=== PATIENT | male | born 1975 | race Caucasian/White ===

== ENCOUNTER 2018-11-06 05:51 | Day surgery (SDC) | payer OTHER ==
--- NOTE | 2018-11-05 08:22 | HP ---
Amended report to enter cosigning physician. HISTORY AND PHYSICAL: DATE OF SURGERY: 11/06/18 DATE OF OFFICE VISIT: 10/31/18 SURGEON: Lizzie Gallardo MD* (dictated by CHUCHO Lambert). PROCEDURE: Right knee arthroscopy with partial meniscectomy, possible chondroplasty, possible synovectomy, possible loose body excision, and possible plica excision. CHIEF COMPLAINT: Right knee pain. HISTORY OF PRESENT ILLNESS: Mr. Araujo is a 42-year-old gentleman with complaints of right knee pain and MRI confirms a meniscus tear. He has elected to proceed with surgery. PAST MEDICAL HISTORY: 1. GERD. 2. Psoriasis. 3. High cholesterol. 4. Rheumatoid arthritis. PAST SURGICAL HISTORY: 1. Right knee ACL reconstruction. 2. Appendectomy. CURRENT MEDICATIONS: 1. Nexium 40 mg a day. 2. Atorvastatin 10 mg half a tab daily. ALLERGIES: STATIN. FAMILY HISTORY: Coronary artery disease and strokes. SOCIAL HISTORY: This is a 42-year-old gentleman, lives with his . He does not smoke or use drugs, drinks about 1 alcoholic beverage a day. REVIEW OF SYSTEMS: A complete 14-point review of systems was reviewed with the patient. Positive for GERD. He denies a history of DVT, PE, hepatitis, HIV, or anesthesia problems. PHYSICAL EXAMINATION GENERAL: He is well developed, well nourished, in no acute distress. VITAL SIGNS: He stands 5 feet 10 inches tall, weighs 195 pounds. His blood pressure is 126/78, his heart rate is 100. HEENT: Normocephalic, atraumatic. NECK: Supple, no palpable lymph nodes. PULMONARY: The lungs are clear to auscultation bilaterally. CARDIAC: Regular rate and rhythm. Strong S1, S2. ABDOMEN: Soft, nontender, nondistended. NEUROLOGICAL: He is alert and oriented x3. MUSCULOSKELETAL: Right lower extremity, the skin is intact. There are no open wounds or abrasions. There is a moderate joint effusion. He has a positive Apley's, positive Adelso's. Negative Carolina's. Range of motion is 5 to 125 degrees of flexion. He is able to dorsiflex and plantar flex. Has a 2+ dorsalis pedis pulse and intact sensation. ASSESSMENT AND PLAN: Mr. Araujo is a 42-year-old gentleman with complaints of right knee pain. An MRI confirms a meniscus tear. He has elected to proceed with a right knee arthroscopy with partial meniscectomy, possible chondroplasty, possible synovectomy, possible loose body excision, possible plica excision. Surgery is scheduled for 11/06/[address] Gallardo discussed the risks and benefits of the surgery at today's visit, and all of his questions were answered. He will follow up with Dr. Gallardo 2 weeks after the surgery. CHUCHO LAMBERT [id number]/[facility] #: [id number] KARIME
[~2018-11-06 05:51] MED LIST: Buffered Lidocaine 1% SYRIN* 1 ML/SYRINGE INTRADERM ONE
[2018-11-06] MEDS ORDERED: Lactated Ringers 1000 ML Bag* 1,000 ML IV SCH (06:00)
[2018-11-06] MEDS ORDERED: Famotidine IV* 10 MG/ML 2 ML (20 mg) IV ONE (06:00)
[2018-11-06] MEDS ORDERED: ceFAZolin 2 GM in NS PREMIX(*) 2 GM/100 ML BAG IVPB ONE (06:09)
[2018-11-06] MEDS ORDERED: Buffered Lidocaine 1% SYRIN* 1 ML/SYRINGE INTRADERM ONE (06:09)
[2018-11-06] MEDS ORDERED: Famotidine IV* 10 MG/ML 2 ML (20 mg) ONE (06:09)
[2018-11-06] MEDS ORDERED: methylPREDNISolone ACETATE 80* 80 MG/ML 1 ML VIAL ONE (06:50)
[2018-11-06] MEDS ORDERED: EPINEPHRINE 1 MG/ML 1 ML VIAL ONE (06:50)
[2018-11-06] MEDS ORDERED: Bupivacaine 0.5%* 50 ML VIAL ONE (06:50)
[2018-11-06] MEDS ORDERED: Ondansetron INJ* 2 MG/ML VIAL ONE (07:00)
[2018-11-06] MEDS ORDERED: Dexamethasone IV* 4 MG/ML 1 ML (4 MG) ONE (07:00)
[2018-11-06] MEDS ORDERED: Lidocaine 2% PF * 5 ML VIAL ONE (07:00)
[2018-11-06] MEDS ORDERED: Propofol* 10 MG/ML 20 ML BTL ONE (07:00)
[2018-11-06] MEDS ORDERED: fentaNYL* 50 MCG/ML 2 ML VIAL (100 MCG VIAL) ONE ×3 (07:00→08:42)
[2018-11-06] MEDS ORDERED: Midazolam* 1 MG/ML 5 ML VIAL (5 MG) ONE (07:00)
[2018-11-06] MEDS ORDERED: Ketorolac INJ* 30 MG/ML 1 ML VIAL ONE (07:29)
[2018-11-06] MEDS ORDERED: Scopolamine 1.5 mg* PATCH ONE (07:59)
[2018-11-06] MEDS ORDERED: Metoprolol Tartrate IV* 1 MG/ML 5 ML VIAL ONE (08:08)
[2018-11-06] MEDS ORDERED: Naloxone* 0.4 MG/ML 1 ML VIAL IV PRN (08:15)
[2018-11-06] MEDS ORDERED: DiMENhydriNATE IV* 50 MG/ML VIAL IV PUSH PRN (08:15)
[2018-11-06] MEDS ORDERED: Ondansetron INJ* 2 MG/ML VIAL IV PRN (08:15)
[2018-11-06] MEDS ORDERED: HYDROcodone/ACETAMIN 5-325 MG* 1 TAB PO PRN (08:15)
[2018-11-06] MEDS: fentaNYL* 50 MCG/ML 2 ML VIAL (100 MCG VIAL) IV PRN ×2 (08:44→08:59)
[2018-11-06] MEDS ORDERED: HYDROcodone/ACETAMIN 5-325 MG* 1 TAB ONE (08:48)
[2018-11-06 11:01] VITALS: BP 136/88
--- NOTE | 2018-11-07 05:19 | OP ---
DATE OF OPERATION: 11/06/18 - [facility] DATE OF : 75 ATTENDING SURGEON: Lizzie Gallardo MD [employer] BUSINESS ANALYST: CHUCHO Adams. Mr. Yarbrough did help throughout the procedure with preparation of the leg, wound retraction, manipulation of the knee, and wound closure. ANESTHESIOLOGIST: Dr. Farias. ANESTHESIA: General. PRE-OP DIAGNOSES: Right knee [id number] osteoarthritis, medial meniscal tear, anterior loose body. POST-OP DIAGNOSES: Right knee [id number] osteoarthritis, anterior synovitis with small anterior loose body, medial meniscal tear, lateral meniscal tear. OPERATIVE PROCEDURE: Right knee arthroscopy with partial medial meniscectomy, partial lateral meniscectomy, anterior synovectomy. ESTIMATED BLOOD LOSS: Less than 25 cc. COMPLICATIONS: None. SPECIMEN: None. BRIEF HISTORY/INDICATION: Mr. Araujo is a 42-year-old gentleman who has had 1 year of intermittent pain and swelling in the right knee. Over the last month , he developed severe pain with inability to work or walk without crutches. An MRI showed medial meniscal tear as well as an intra-articular loose body along the anterior joint line. The patient failed conservative treatment. He wished to proceed with right knee arthroscopy for excision of the loose body, partial meniscectomy, possible chondroplasty, possible synovectomy. Informed consent was obtained from the patient. He understood the risks of surgery included but were not limited to bleeding, infection, damage to nearby structures, continued pain, need for further surgery, retear of the meniscus, continued progression of arthritis, stroke, heart attack, blood clot, , and the anesthesia complications. He elected to proceed. INTRAOPERATIVE FINDINGS: Intraoperatively, the patient was noted to have a complex tear of the posterior medial meniscus in the red-white zone. He had a radial type tear of the posterior lateral portion of the lateral meniscus, he had a small calcified body along the anterior joint line in the fat pad. He had a significant amount of inflamed synovium anteriorly along the joint line. He was noted to have grade 2 and 3 Outerbridge cartilage changes in the medial and patellofemoral compartments. There was minimal exposed subchondral bone. The patient was noted to have some laxity of the ACL. DESCRIPTION OF PROCEDURE: Mr. Araujo was identified in the preanesthesia unit. His right lower extremity was marked as the correct operative side. Informed consent was signed and placed in the chart. The patient was taken to the operating room and placed under general anesthesia. Right lower extremity was prepped and draped in the usual sterile fashion. Preop time-out was made to correctly identify the patient, side, and site. Appropriate perioperative antibiotics were given within 1 hour of incision. An anterolateral 0.5 cm portal incision was made with a 10 blade and carried down through the capsule. Trocar was introduced. As soon as the light and water sources were turned on, there was immediate visualization of the suprapatellar pouch. A tour of the knee joint was performed. No abnormality was seen in the suprapatellar pouch. Patellofemoral compartment showed some grade 2 and 3 Outerbridge cartilage changes, but no large areas of exposed subchondral bone. There was obvious red inflamed synovium along the entire anterior joint line. Medial gutter showed no loose body. Medial compartment showed some grade 2 to 3 Outerbridge cartilage changes along the medial femoral condyle. There was a visible displaced linear/complex tear of the posterior medial meniscus visible. The ACL had some frayed soft tissue anteriorly. The knee was placed in the glaezh-gj-tzgl position. There was a radial tear along the posterior portion of the lateral meniscus. Minimal degenerative changes in the compartment. Lateral gutter showed no loose body. Under direct visualization, a medial portal incision was made. A second tour of the knee joint was performed. Additional findings were, upon probing the anterior joint line, there was a calcified loose body that had been visualized on MRI. Shaver and radiofrequency ablation wand were used to perform the anterior synovectomy along the joint line. This improved visualization greatly. The calcified body was carefully removed using the shaver and radiofrequency ablation wand. Diameter was approximately 5 mm. Straight biter and shaver were used to perform partial medial meniscectomy along the posterior one third of the medial meniscus in the red-white zone. Further probing of the meniscus showed no additional tears or displaced fragments. Radiofrequency ablation wand was used to further smooth the edge of the meniscus. Next, the knee was placed in a owqtzy-tt-mbeo position. The radial tear along the posterior portion of the lateral meniscus in the red-white zone was carefully removed using a shaver and radiofrequency ablation wand. Further probing of the lateral meniscus showed no additional tears. Attention was turned to evaluation of the ACL. Radiofrequency ablation wand was used to remove any inflamed tissue or frayed soft tissue along the anterior tendon. Probing of the tendon showed approximately 50% had significant laxity and 50% showed good integrity and stability of the tendon. The knee was copiously irrigated with sterile saline. All instruments were removed. Incisions were closed with 3-0 nylon future. Sterile Xeroform, 4x4's , and Webril were used to cover the incision. The Leopoldo wrap and cold pack were placed over this. The patient's anesthesia was reversed without difficulty. He was taken to the PACU in stable condition. Intended weightbearing will be weightbearing as tolerated. Intended DVT prophylaxis will be aspirin. He will follow up in 2 weeks' time for suture removal. [id number]/[facility] #: [id number] KARIME
[2018-11-09] MEDS ORDERED: Scopolamine PATCH Remove* 1 NOTE MISC PATCH OFF ONE (08:16)
== END 2018-11-06 11:05 | disposition home or self-care (01) ==
LOC: OR 05:51
PROVIDERS: ATTEND Orthopaedic Surgery Adult Reconstructive Orthopaedic Surgery
DX: S83.241A Other tear of medial meniscus, current injury, right knee, initial encounter (principal); S83.281A Other tear of lateral meniscus, current injury, right knee, initial encounter; X58.XXXA Exposure to other specified factors, initial encounter; Y92.9 Unspecified place or not applicable; Y99.0 Civilian activity done for income or pay; M17.11 Unilateral primary osteoarthritis, right knee; M65.861 Other synovitis and tenosynovitis, right lower leg; R00.2 Palpitations; K21.9 Gastro-esophageal reflux disease without esophagitis; M06.9 Rheumatoid arthritis, unspecified
CPT/HCPCS: A9270-GY; J0690; J1040; J1100; J1885; J2250; J2405; J2704; J3010; J3490